=== PATIENT | female | born 1985 | race Caucasian/White ===

== ENCOUNTER 2017-01-30 00:49 | Emergency (ER) | payer OTHER ==
[~2017-01-30] VITALS: Ht 162.6 cm; Wt 81.8 kg
[~2017-01-30 00:49] MED LIST: PRILOSEC40 MG PO; REGLAN5 MG PO; SYNTHROID50 MCG PO; TOPAMAX50 MG PO
[2017-01-30 01:25] LABS: HEMATOCRIT 42.9 % (36.0-46.0); MCHC 33.6 G/DL (30.0-36.0); MCV 92.5 FL (83-99); MEAN PLAT.VOLUME 10.9 uM^3 (9.5-12.4); PLATELET COUNT 265 K/uL (156-360); RBC DIS.WIDTH-CV 12.8 % (11.8-14.6); RBC DIS.WIDTH-SD 43.6 % (39-53); RED BLOOD COUNT 4.64 M/uL (3.80-5.20); WHITE BLOOD COUNT 7.6 K/uL (4.1-10.2)
[2017-01-30 01:35] LABS: CHLORIDE 111 mEq/L (99-109); POTASSIUM 3.6 mEq/L (3.7-5.4); SODIUM 139 mEq/L (136-147)
[2017-01-30 01:37] LABS: GLUCOSE 134 mg/dL (70-99)
[2017-01-30 01:38] LABS: ANION GAP 10 MEQ/L (2-14)
[2017-01-30 01:40] LABS: GFR ESTIMATE (CALCULATED) > 59 mL/min/
[2017-01-30 01:41] LABS: UREA NITROGEN (BUN) 20 mg/dL (9-23)
[2017-01-30 01:49] LABS: QUANTITATIVE HCG < 4.0 MIU/ML
[2017-01-30] MEDS ORDERED: FIORICET,ESG1 TABLET PO (02:16)
[2017-01-30 03:31] VITALS: BP 128/90
[2017-01-31] MEDS ORDERED: FIORICET,ESG1 TABLET PO (05:13)
== END 2017-01-30 03:32 | disposition home or self-care (01) ==
LOC: EME 00:49
PROVIDERS: Emergency Medicine
DX: G43.909 Migraine, unspecified, not intractable, without status migrainosus (principal); Z88.1 Allergy status to other antibiotic agents; Z88.6 Allergy status to analgesic agent; Z88.0 Allergy status to penicillin
CPT/HCPCS: 70450; 80048; 84702; 85027; 99281; 99284; Q0164

== ENCOUNTER 2017-01-31 02:10 | Emergency (ER) | payer OTHER ==
[~2017-01-31] VITALS: Ht 162.6 cm; Wt 86.4 kg
[~2017-01-31 02:10] MED LIST changes: +FIORICET,ESG1 TABLET PO
[2017-01-31 03:38] LABS: HEMATOCRIT 40.1 % (36.0-46.0); MCH 31.3 PG (29.0-34.0); MCHC 33.7 G/DL (30.0-36.0); PLATELET COUNT 254 K/uL (156-360); RBC DIS.WIDTH-CV 12.8 % (11.8-14.6); RBC DIS.WIDTH-SD 44.2 % (39-53); RED BLOOD COUNT 4.31 M/uL (3.80-5.20); WHITE BLOOD COUNT 7.8 K/uL (4.1-10.2)
[2017-01-31 03:49] LABS: CHLORIDE 111 mEq/L (99-109); POTASSIUM 3.9 mEq/L (3.7-5.4); SODIUM 141 mEq/L (136-147)
[2017-01-31 03:50] LABS: GLUCOSE 103 mg/dL (70-99)
[2017-01-31 03:52] LABS: ANION GAP 9 MEQ/L (2-14)
[2017-01-31 03:54] LABS: GFR ESTIMATE (CALCULATED) > 59 mL/min/
[2017-01-31 03:55] LABS: UREA NITROGEN (BUN) 18 mg/dL (9-23)
[2017-01-31 04:02] LABS: TROP-I INTERPRETATION NEGATIVE; TROPONIN-I < 0.01 ng/mL (0.0-0.30)
[2017-01-31 04:03] LABS: QUANTITATIVE HCG < 4.0 MIU/ML
[2017-01-31] MEDS ORDERED: FIORICET,ESG1 TABLET PO (05:13)
[2017-01-31 05:29] LABS: BILIRUBIN NEGATIVE; BLOOD NEGATIVE; COLOR YELLOW ((YELLOW)); GLUCOSE (STRIP) NEGATIVE; KETONES NEGATIVE; LEUKOCYTES NEGATIVE; NITRITE NEGATIVE; PROTEIN (STRIP) NEGATIVE; SPECIFIC GRAVITY 1.018 (1.000-1.030); UROBILINOGEN 0.2 MG/DL (0.2-1.0)
[2017-01-31 05:33] LABS: ADD MIUA? NO; UCUL ADDED? NO
[2017-01-31 05:42] VITALS: BP 110/70
== END 2017-01-31 05:37 | disposition home or self-care (01) ==
LOC: EME 02:10
PROVIDERS: Emergency Medicine
DX: R51 Headache (principal); R11.2 Nausea with vomiting, unspecified; E86.0 Dehydration; Z88.8 Allergy status to other drugs, medicaments and biological substances; Z88.0 Allergy status to penicillin; Z88.1 Allergy status to other antibiotic agents; Z88.6 Allergy status to analgesic agent; G40.909 Epilepsy, unspecified, not intractable, without status epilepticus
CPT/HCPCS: 80048; 81003; 84484; 84702; 85027; 93005; 99281; 99284; J1100; J2765; J3475